=== PATIENT | female | born 1950 | race Caucasian/White ===

== ENCOUNTER 2021-08-24 09:19 | Day surgery (SDC) | payer MEDICARE, OTHER ==
[2021-08-24] MEDS ORDERED: Midazolam 1 MG/ML 2 ML SDV ONE (09:42)
[2021-08-24] MEDS ORDERED: Propofol 200 MG/20 ML SDV ONE (09:42)
[2021-08-24] MEDS ORDERED: fentaNYL 100 MCG/2 ML SDV ONE (09:42)
[2021-08-24] MEDS ORDERED: Lactated Ringers 1,000 ML IV SCH ×2 (09:56→11:30)
== END 2021-08-24 12:15 | disposition home or self-care (01) ==
LOC: JP.SDS 09:19
PROVIDERS: ATTEND Family Medicine
DX: Z12.11 Encounter for screening for malignant neoplasm of colon (principal); K64.4 Residual hemorrhoidal skin tags; K64.8 Other hemorrhoids; E66.9 Obesity, unspecified; K21.9 Gastro-esophageal reflux disease without esophagitis; Z98.890 Other specified postprocedural states; Z88.3 Allergy status to other anti-infective agents; Z88.0 Allergy status to penicillin; Z68.36 Body mass index [BMI] 36.0-36.9, adult
CPT/HCPCS: 93005; G0121; J2250; J2704; J3010; J7120